=== PATIENT | male | born 1985 | race Caucasian/White ===

== ENCOUNTER 2020-12-03 06:09 | Observation (INO) | payer OTHER ==
[2020-12-03] MEDS ORDERED: HEPARIN SODIUM,PORCINE 5,000 UNIT/ML 1 ML VIAL IV PRN ×2 (06:37→14:12)
--- NOTE | 2020-12-03 06:38 | ED ---
General Adult HPI - General Chief complaint: Shortness of Breath Stated complaint: shortness of breath Time Seen by Provider: 12/03/20 06:14 Source: patient, RN/MD, EMS, RN notes reviewed Mode of arrival: EMS Limitations: no limitations - History of Present Illness Initial comments: 35-year-old male presents emergency Department as a transfer from [facility] with chief complaint of bilateral pulmonary embolus him. Patient states her last 3-4 days she's felt short of breath. Patient states that he's had no leg pain or leg swelling. Patient states he's never had a DVT or PE. Patient states that he recently had antibiotics has for colon which was positive. Patient states he performed this as his headache over a few weeks ago. Patient states that he is on pain medication, omeprazole and Adipex currently. Patient denies any fevers or chills. Patient states he has some irritation in his chest but states he does not describe it as a pain. Patient denies any focal weakness. Patient states he was treated for rash on his right hand with a Medrol Dosepak recently. He denies any calf pain swelling discoloration or lower extremity is. Patient has no abdominal complaints. - Related Data Allergies Allergy/AdvReac Type Severity Reaction Status Date / Time No Known Allergies Allergy Verified 12/03/20 06:20 Review of Systems ROS Statement: Those systems with pertinent positive or pertinent negative responses have been documented in the HPI. ROS Other: All systems not noted in ROS Statement are negative. Past Medical History Past Medical History: No Reported History History of Any Multi-Drug Resistant Organisms: None Reported Past Surgical History: Orthopedic Surgery, Tonsillectomy Additional Past Surgical History / Comment(s): bone graft(2013) Past Psychological History: ADD/ADHD Smoking Status: Never smoker Past Alcohol Use History: Occasional Past Drug Use History: None Reported General Exam Limitations: no limitations General appearance: alert, in no apparent distress Head exam: Present: atraumatic, normocephalic, normal inspection Eye exam: Present: normal appearance, PERRL, EOMI. Absent: scleral icterus, conjunctival injection, periorbital swelling ENT exam: Present: normal exam, normal oropharynx, mucous membranes moist Neck exam: Present: normal inspection, full ROM. Absent: tenderness, meningismus, lymphadenopathy Respiratory exam: Present: normal lung sounds bilaterally. Absent: respiratory distress, wheezes, rales, rhonchi, stridor Cardiovascular Exam: Present: regular rate, normal rhythm, normal heart sounds. Absent: systolic murmur, diastolic murmur, rubs, gallop, clicks GI/Abdominal exam: Present: soft, normal bowel sounds. Absent: distended, tenderness, guarding, rebound, rigid Extremities exam: Present: other (Pulses are equal bilaterally of the upper and lower extremity there is no notable discoloration swelling or tenderness in any extremity). Absent: pedal edema, calf tenderness Neurological exam: Present: alert Skin exam: Present: warm, dry, intact, normal color. Absent: rash Course Vital Signs 12/03/20 06:12 Temperature 98.0 F Pulse Rate 87 Respiratory 18 Rate Blood Pressure 147/97 O2 Sat by Pulse 96 Oximetry EKG Findings - EKG Comments: EKG Findings:: EKG performed at 6:17 normal sinus rhythm rate 82 NC 174 QRS 96 QT/QTC 380/443 Medical Decision Making - Medical Decision Making I did review records from [facility]. Patient CT does reveal bilateral pulmonary embolism with no saddle PE. Labs did not reveal elevated troponin, troponin less than 0.012. Patient's vitals are stable. Patient does not have any other significant lab abnormalities. Patient is resting comfortably in bed. Patient case will has with him a physician with consult pulmonology. Patient is currently on heparin heparin will be continued. Disposition Clinical Impression: Bilateral pulmonary embolism Disposition: ADMITTED IP TO THIS HOSP Condition: Serious Referrals: Rony Ceron MD [Primary Care Provider] - 1-2 days
[2020-12-03] MEDS ORDERED: ONDANSETRON 4 MG/2 ML VIAL IVP PRN (06:39)
[2020-12-03] MEDS ORDERED: ACETAMINOPHEN TAB 325 MG TAB PO PRN (06:39)
[2020-12-03] MEDS ORDERED: NALOXONE 0.4 MG/ML 1 ML VIAL IV PRN (06:39)
[2020-12-03] MEDS ORDERED: HEPARIN SOD,PORK IN 0.45% NACL 25,000 UNIT in 0.45% NACL 1 250ML.BAG IV SCH (06:45)
[2020-12-03] MEDS ORDERED: oxyCODONE-APAP 10-325MG 1 EACH TAB PO PRN (07:50)
--- NOTE | 2020-12-03 07:56 | P.HPIM ---
History of Present Illness H&P Date: 12/03/20 Chief Complaint: Shortness of breath This is a 35-year-old male with past medical history significant for morbid obesity who presented to [facility] with several days progressive dyspnea and orthopnea. Patient denies any chest pain. Denies any cough. No fevers or chills. Patient said that his fiance tested positive for COVID-19 last month that he remained asymptomatic. Patient reported that he get the antibody test later on and was positive. Otherwise he denies any complaints. He was evaluated at House and was found to be hypoxic with O2 sats around 85% while laying in bed. Lab work was mostly unremarkable except for elevated d-dimer. CT angiogram showed bilateral PE with no evidence of right ventricular strain. Patient was transferred to our hospital for further management. He was seen and evaluated by me in the emergency room. He appeared comfortable. He does not have any complaints at this time. He is a nonsmoker. 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 No recent car or train trips. No recent surgeries. Patient's report that he has a history of blood clots in the family involving his mother at age 50 but not sure was admitted to PE or DVT. He otherwise denies any specific complaints or concerns. Review of Systems Review of system: 14 points review of systems were obtained and were negative except to what were mentioned in the HPI. Past Medical History Past Medical History: No Reported History History of Any Multi-Drug Resistant Organisms: None Reported Past Surgical History: Orthopedic Surgery, Tonsillectomy Additional Past Surgical History / Comment(s): bone graft(2013) Past Psychological History: ADD/ADHD Smoking Status: Never smoker Past Alcohol Use History: Occasional Past Drug Use History: None Reported Medications and Allergies Home Medications Medication Instructions Recorded Confirmed Type Ibuprofen [Motrin] 600 mg PO BID PRN 12/03/20 12/03/20 History Omeprazole 20 mg PO DAILY PRN 12/03/20 12/03/20 History Phentermine HCl [Adipex-P] 37.5 mg PO DAILY 12/03/20 12/03/20 History oxyCODONE HCL/ACETAMINOPHEN 1 tab PO BID 12/03/20 12/03/20 History [Percocet 10-325 mg] Allergies Allergy/AdvReac Type Severity Reaction Status Date / Time No Known Allergies Allergy Verified 12/03/20 07:08 Physical Exam Vitals: Vital Signs Temp Pulse Resp BP Pulse Ox 12/03/20 06:12 98.0 F 87 18 147/97 96 Intake and Output 12/02/20 12/03/20 12/03/20 22:59 06:59 14:59 Other: Weight 162.84 kg General: The patient is awake and alert, in no distress Eye: there is normal conjunctiva bilaterally. Neck: The neck is supple, there is no JVD. Cardiovascular: Normal S1-S2, no S3-S4, no murmurs. Respiratory: Lungs clear to auscultation bilaterally Gastrointestinal: Abdomen is soft, nontender Musculoskeletal: There is no pedal edema. Neurological:. Speech is normal. Skin: Skin is warm and dry Assessment and Plan Assessment: This is a 35-year-old male with past medical history noted below who presented to the emergency room at [facility] with worsening shortness of breath. Patient was evaluated and transferred to our hospital for further management of his medical problems noted below. 1. Bilateral PE, acute, noted on CT angiogram at outside hospital. Started on anticoagulation with IV heparin. No evidence of right ventricular strain on CT. I would obtain echocardiogram for further evaluation. Also obtain bilateral lower extremity Doppler. Patient will need a referral to hematology as an outpatient. 2. Acute hypoxic respiratory failure, wean off O2 as tolerated for O2 sat 90%. Pulmonology consult by ED staff. 3. Morbid obesity, encouraged to continue his efforts regarding lifestyle modification and exercise. Patient reports losing approximately 20 pounds over the last 2 months. He is currently on Adipex. I did find any evidence that Adipex me cause a hypercoagulable state. 4. Chronic arthritis on Percocet at home 5. GI prophylaxis with IV Protonix, DVT prophylaxis on IV heparin 6. Patient is full code
[2020-12-03 09:00] LABS: Prothrombin Time 10.9 sec (9.0-12.0)
[2020-12-03] MEDS: PANTOPRAZOLE 40 MG/10 ML VIAL IV SCH ×2 (09:53→10:08)
--- NOTE | 2020-12-03 10:05 | US ---
EXAMINATION TYPE: US venous doppler duplex LE DATE OF EXAM: 12/03/2020 8:46 AM COMPARISON: NONE CLINICAL HISTORY: PE. PE SIDE PERFORMED: Bilateral TECHNIQUE: The lower extremity deep venous system is examined utilizing real time linear array sonog sabrina with graded compression, doppler sonography and color-flow sonography. VESSELS IMAGED: Common Femoral Vein Deep Femoral Vein Greater Saphenous Vein * Femoral Vein Popliteal Vein Small Saphenous Vein * Proximal Calf Veins (* superficial vessels) Abnormal low level internal echoes present within the left popliteal vein, there is lack of compressi bility, color flow Right Leg: Negative for DVT Left Leg: Positive DVT Popliteal Vein IMPRESSION: Deep venous thrombosis left popliteal vein A Red level critical message alert has been initiated for [facility] via the [employer] System on 12/03/2020 10:02 AM. This message alert has been sent to [facility] vi a the preferences provided by the clinician for the receipt of Radiology Critical Findings. Message I D [id number].
[2020-12-03] MEDS: NON FORMULARY DRUG (Phentermine Hcl [Adipex-P] 37.5 MG Tablet) PO SCH (10:08)
--- NOTE | 2020-12-03 11:01 | ECHOF ---
Referral Reason:PE MEASUREMENTS -------- HEIGHT: 182.9 cm WEIGHT: 162.8 kg BP: RVIDd: 4.2 cm (< 3.3) IVSd: 1.3 cm (0.6 - 1.1) LVIDd: 3.7 cm (3.9 - 5.3) LVPWd: 1.2 cm (0.6 - 1.1) IVSs: 1.7 cm LVIDs: 2.2 cm LVPWs: 1.7 cm Ao Diam: 3.4 cm (2.0 - 3.7) AV Cusp: 2.3 cm (1.5 - 2.6) LA Diam: 3.1 cm (2.7 - 3.8) MV EXCURSION: 15.119 mm (> 18.000) MV EF SLOPE: 80 mm/s (70 - 150) EPSS: 0.8 cm MV E Heber: 0.60 m/s MV DecT: 132 ms MV A Heber: 0.60 m/s MV E/A Ratio: 1.00 RAP: 5.00 mmHg RVSP: 40.69 mmHg FINDINGS -------- Sinus rhythm. This was a technically difficult study with suboptimal views. The left ventricular size is normal. There is mild concentric left ventricular hypertrophy. Overa ll left ventricular systolic function is normal with, an EF between 55 - 60 %. The right ventricle is severely enlarged. The left atrial size is normal. The right atrial size is normal. The aortic valve is trileaflet, and appears structurally normal. No aortic stenosis or regurgitation. The mitral valve is normal. There is trace mitral regurgitation. The tricuspid valve appears structurally normal. Mild tricuspid regurgitation present. There is m ild pulmonary hypertension. The right ventricular systolic pressure, as measured by Doppler, is 40. 69mmHg. There is no pulmonic regurgitation present. The aortic root size is normal. IVC Not well visulized. There is no pericardial effusion. CONCLUSIONS -------- 1. There is mild concentric left ventricular hypertrophy. 2. Overall left ventricular systolic function is normal with, an EF between 55 - 60 %. 3. The right ventricle is severely enlarged. 4. The left atrial size is normal. 5. The aortic valve is trileaflet, and appears structurally normal. No aortic stenosis or regurgitati on. 6. There is trace mitral regurgitation. 7. Mild tricuspid regurgitation present. 8. There is mild pulmonary hypertension. 9. There is no pericardial effusion. CASEY SAW OPERATOR: Deya Quintero RDCS
[2020-12-03] MEDS: HEPARIN SOD,PORK IN 0.45% NACL 25,000 UNIT in 0.45% NACL 1 250ML.BAG IV SCH ×2 (14:25→22:46)
--- NOTE | 2020-12-03 17:42 | P.CNPUL ---
History of Present Illness Consult date: 12/03/20 Reason for consult: pulmonary embolism History of present illness: Morbidly obese 35-year-old male patient transferred from [facility] because of worsening shortness of breath. Denies having any cough or sputum production. No hemoptysis. He has been exposed to cold through his fiance and clinically doing it might sick but the patient had a positive titer at a later stage. I mean antibiotic factors for coronary/Covid 19. The patient was quite hypoxic and 85% room in oxygen at [facility]. CT angiogram was done and showed bilateral pulmonary embolism without evidence of any strain pattern. The patient got chest without hospital he was placed on IV heparin. Doppler of the lower extremity shows a PT of DVT on the left. Echocardiogram shows no evidence of any pulmonary hypertension with right-sided heart failure. He is currently on oxygen at room air with a pulse ox of 94%. No personal history of clotting disorder. He reports history of blood clots in the family involving his mother at age of 50. No trauma. No immobility. No recent surgery. No history of any malignancy. He is hemodynamically stable. BP stable. He was having some sinus tachycardia which is improved and his heart rate currently is 100. Review of Systems Constitutional: Denies chills, Denies fever Eyes: denies as per HPI, denies blurred vision, denies bulging eye, denies decreased vision, denies diplopia, denies discharge, denies dry eye, denies irritation, denies itching, denies pain, denies photophobia, denies loss of peripheral vision, denies loss of vision, denies tunnel vision/blind spots Ears: deny: decreased hearing, ear discharge, earache, tinnitus Ears, nose, mouth and throat: Reports as per HPI Breasts: absent: as per HPI, gynecomastia Cardiovascular: Reports as per HPI, Reports dyspnea on exertion Respiratory: Reports dyspnea Gastrointestinal: Reports as per HPI Genitourinary: Reports as per HPI Musculoskeletal: Reports as per HPI Musculoskeletal: absent: ankle pain, ankle stiffness, ankle swelling Integumentary: Reports as per HPI Neurological: Reports as per HPI Psychiatric: Reports as per HPI Endocrine: Reports as per HPI Hematologic/Lymphatic: Reports as per HPI Allergic/Immunologic: Reports as per HPI Past Medical History Past Medical History: GERD/Reflux, Osteoarthritis (OA) Additional Past Medical History / Comment(s): Arthritis bilateral ankles and L wrist, pt recently tested + covid antibodies. History of Any Multi-Drug Resistant Organisms: None Reported Past Surgical History: Orthopedic Surgery, Tonsillectomy Additional Past Surgical History / Comment(s): Injury to L wrist with bone graft (2013) taken from hip to L wrist-pt states he had 2-3 surgeries on L wrist, EGD d/t food impaction, L testicle surgery. Past Anesthesia/Blood Transfusion Reactions: No Reported Reaction Smoking Status: Never smoker - Past Family History Mother Additional Family Medical History / Comment(s): Mother had blood clots but pt does not know if it was a DVT or PE Father Family Medical History: Cancer Additional Family Medical History / Comment(s): Father from complications (ascities) of renal cancer. Medications and Allergies Home Medications Medication Instructions Recorded Confirmed Type Ibuprofen [Motrin] 600 mg PO BID PRN 12/03/20 12/03/20 History Omeprazole 20 mg PO DAILY PRN 12/03/20 12/03/20 History Phentermine HCl [Adipex-P] 37.5 mg PO DAILY 12/03/20 12/03/20 History oxyCODONE HCL/ACETAMINOPHEN 1 tab PO BID 12/03/20 12/03/20 History [Percocet 10-325 mg] Allergies Allergy/AdvReac Type Severity Reaction Status Date / Time No Known Allergies Allergy Verified 12/03/20 07:08 Physical Exam Vitals: Vital Signs Temp Pulse Pulse Resp BP BP Pulse Ox 12/03/20 12:46 90 16 140/83 94 L 12/03/20 11:00 89 18 123/89 91 L 12/03/20 10:00 87 18 122/73 92 L 12/03/20 08:30 89 18 149/90 98 12/03/20 06:12 98.0 F 87 18 147/97 96 Intake and Output 12/02/20 12/03/20 12/03/20 22:59 06:59 14:59 Other: Weight 162.84 kg 162.84 kg The patient appeared well nourished and normally developed. The patient is obese and carries a BMI of 46.1 .Vital signs as documented. Head exam is unremarkable. No scleral icterus or corneal arcus noted. Neck is without jugular venous distension, thyromegaly, or carotid bruits. Carotid upstrokes are brisk bilaterally. Lungs are clear to auscultation and percussion. Cardiac exam reveals the PMI to be normally sized and situated. Rhythm is regular. First and second heart sounds normal. No murmurs, rubs or gallops. Abdominal exam reveals normal bowel sounds, no masses, no organomegaly and no aortic enlargement. Extremities are nonedematous and both femoral and pedal pulses are normal. No skinNeurologically, the patient is awake and alert and the patient does not have any focal neurological deficit. Cranial nerves are essentially intact. Results - Laboratory Findings PT/INR, D-dimer PT 10.9 sec (9.0-12.0) 12/03/20 07:37 INR 1.0 (<1.2) 12/03/20 07:37 Abnormal lab findings: Abnormal Labs 12/03/20 07:37 APTT 63.0 H - Diagnostic Findings Chest x-ray: image reviewed CT scan - chest: image reviewed Assessment and Plan Plan: 1 acute bilateral pulmonary embolism, unprovoked, could be related to recent COVID 19 exposure/infection , but this can not be confirmed with absolute certainty 2 acute left lower extremity popliteal DVT, unprovoked 3 acute hypoxic respiratory failure with secondary shortness of breath related to above. Code room air oxygen with a pulse ox of 94% 4 morbid obesity, receiving Adipex for weight loss 5 chronic osteoarthritis maintained on Percocet 6 COVID positive by antibodies on Oct 2020 Plan Continue IV heparin for 24 hours and transition the patient to a new agent anticoagulants such as Eliquis within next 24 hours. Computed tomography scan of the chest was noted. Doppler of the lower extremity was noted. Echocardiogram was noted. No evidence of any hemodynamic instability a strain pattern. He will need long-term anticoagulation based on unprovoked nature of this pulmonary embolism. Recommend anticoagulation for 1 year. No other identifiable risk further other than his obesity and his chronic sedentary lifestyle which is obvious last modification. Hypercoagulable workup at a later stage.
[2020-12-04 07:56] VITALS: BP 133/74; PULSE 68; RESP 20; TEMP 97.7
[2020-12-04] MEDS ORDERED: RIVAROXABAN 15 MG TAB PO SCH (08:00)
[2020-12-04] MEDS: NON FORMULARY DRUG (Phentermine Hcl [Adipex-P] 37.5 MG Tablet) PO SCH (09:12)
[2020-12-04] MEDS: PANTOPRAZOLE 40 MG/10 ML VIAL IV SCH (09:24)
--- NOTE | 2020-12-04 10:31 | P.DS ---
Providers Date of admission: 12/03/20 07:26 Expected date of discharge: 12/04/20 Attending physician: Kell Davidson MD Consults: 12/03/20 06:40 Consult Physician Urgent Consulting Provider: Shaniqua Johnson Consult Reason/Comments: Bilateral pulmonary embolism Do you want consulting provider notified?: Yes Primary care physician: [facility] Course: This is a 35-year-old male with past medical history noted below who presented to the emergency room at [facility] with worsening shortness of breath. Patient was evaluated and transferred to our hospital for further management of his medical problems noted below. 1. Bilateral PE, acute, noted on CT angiogram at outside hospital. Started on anticoagulation with IV heparin. No evidence of right ventricular strain on CT or echocardiogram. Patient will be transitioned to oral Xarelto 2. Acute DVT involving the left lower extremity 3. Acute hypoxic respiratory failure, resolved currently on room air 4. Morbid obesity, encouraged to continue his efforts regarding lifestyle modification and exercise. 5. Chronic arthritis on Percocet at home Patient is considered to have a non-provoked PE. He was advised to follow-up with hematology in the office for further hypercoagulable workup. He was given information for Dr. Wesley. He was also seen by pulmonary during this admission. Physical exam: General: The patient is awake and alert, in no distress Eye: there is normal conjunctiva bilaterally. Neck: The neck is supple, there is no JVD. Cardiovascular: Normal S1-S2, no S3-S4, no murmurs. Respiratory: Lungs clear to auscultation bilaterally Gastrointestinal: Abdomen is soft, nontender Musculoskeletal: There is no pedal edema. Neurological:. Speech is normal. Skin: Skin is warm and dry Patient will be discharged home in a stable condition. For further details about this hospitalization please refer to the electronic chart. Time spent on discharge > 30 minutes including counseling and coordination of care Patient Condition at Discharge: Fair Plan - Discharge Summary Discharge Rx Participant: No New Discharge Prescriptions: New Rivaroxaban [Xarelto Starter Pack] 0 mg PO DIRECTED 30 Days #1 pack Continue oxyCODONE HCL/ACETAMINOPHEN [Percocet 10-325 mg] 1 tab PO BID Phentermine HCl [Adipex-P] 37.5 mg PO DAILY Omeprazole 20 mg PO DAILY PRN PRN Reason: GERD Discontinued Ibuprofen [Motrin] 600 mg PO BID PRN PRN Reason: Pain Discharge Medication List Omeprazole 20 mg PO DAILY PRN 12/03/20 [History] Phentermine HCl [Adipex-P] 37.5 mg PO DAILY 12/03/20 [History] oxyCODONE HCL/ACETAMINOPHEN [Percocet 10-325 mg] 1 tab PO BID 12/03/20 [History] Rivaroxaban [Xarelto Starter Pack] 0 mg PO DIRECTED 30 Days #1 pack 12/04/20 [Rx] Follow up Appointment(s)/Referral(s): Rony Ceron MD [Primary Care Provider] - 12/09/20 10:00 am (Francis Arana MD [STAFF PHYSICIAN] - 2 Weeks (DR WESLEY'S OFFICE WILL CALL WITH DATE AND TIME) Patient Instructions/Handouts: Pulmonary Embolism (DC) Discharge Disposition: HOME SELF-CARE
== END 2020-12-04 12:30 | disposition home or self-care (01) ==
LOC: EC 06:09 → 3SCARD 07:26 → INTOOBSV 07:26 → 3SCARD 12:09 → UNDODISIN 12-04 12:30
PROVIDERS: ADMIT Internal Medicine; ATTEND Internal Medicine
DX: I26.99 Other pulmonary embolism without acute cor pulmonale (principal); J96.01 Acute respiratory failure with hypoxia; I82.432 Acute embolism and thrombosis of left popliteal vein; K21.9 Gastro-esophageal reflux disease without esophagitis; M19.072 Primary osteoarthritis, left ankle and foot; M19.071 Primary osteoarthritis, right ankle and foot; M19.032 Primary osteoarthritis, left wrist; E66.01 Morbid (severe) obesity due to excess calories; Z68.42 Body mass index [BMI] 45.0-49.9, adult; F90.9 Attention-deficit hyperactivity disorder, unspecified type; Z20.822 Contact with and (suspected) exposure to COVID-19; Z79.891 Long term (current) use of opiate analgesic; Z79.899 Other long term (current) drug therapy; Z90.89 Acquired absence of other organs; Z80.51 Family history of malignant neoplasm of kidney; Z83.2 Family history of diseases of the blood and blood-forming organs and certain disorders involving the immune mechanism
CPT/HCPCS: 96376; 96366 ×3; 96365; 99285; 93005; 85610; 85730; 87635; 93970; G0378 ×2; C8929; J1644 ×2; Q9950; 93306